=== PATIENT | male | born 1995 | race Caucasian/White ===

== ENCOUNTER 2017-03-17 20:06 | Emergency (ER) | payer MEDICAID ==
[2017-03-17] MEDS ORDERED: ACETAMINOPHEN 325 MG TABLET PO ONE (20:32)
--- NOTE | 2017-03-17 21:04 | ER PHYSICIAN DOCUMENTATION ---
Physician Documentation [facility] Name:Sudheer Speaker Age:21 yrs Sex:Male :1995 Arrival Date:03/17/2017 Time:20:06 Bed1 Private MD: Mychal Garcia Disposition: 03/17/17 20:57 Discharged to Home/Self Care. Impression: Viral Illness. - Condition is Good. - Discharge Instructions: VIRAL SYNDROME (Adult). - Medical Reconciliation form form. - Follow up: Private Physician; When: As needed; Reason: Continuance of care. - Problem is new. - Symptoms have improved. HPI: 03/17 20:57 This 21 yrs old Male presents to ER via Private Vehicle with complaints of jm Fever, Cough, Breathing Difficulty. 20:57 The patient reports fever, not measured (subjective). Onset: The symptom(s)/episode jm began/occurred yesterday, and became worse today. Associated signs and symptoms: Pertinent positives: arthralgias, cough, headache, myalgias, sore throat. Severity of symptoms: in the emergency department the symptoms are unchanged. Historical: - Allergies: No known drug Allergies; - Home Meds: 1. None - PMHx: Asthma; - PSHx: None; - Tetanus: < 10 years. - Ebola Screening: : Patient negative for fever greater than or equal to 101.5 degrees Fahrenheit, and additional compatible Ebola Virus Disease symptoms. - Immunization history: Flu Vaccine None. - Social history: Smoking status: Patient uses tobacco products, current every day smoker. ROS: 20:58 Constitutional: Positive for body aches, chills, fatigue, fever, malaise. jm 20:58 ENT: Positive for sinus congestion, sinus pain. 20:58 Neck: Negative for pain with movement, pain at rest, tenderness. 20:58 Respiratory: Positive for cough. 20:58 Neuro: Positive for headache. Exam: 20:58 Constitutional: The patient appears alert, awake, comfortable. jm 20:58 ENT: Posterior pharynx: Tonsils: bilaterally enlarged, no exudate, erythema, that is moderate, exudate, is not appreciated, Voice: is normal. 20:58 Neck: ROM/movement: limited range of motion, is not appreciated, Meningeal signs: are not present, nuchal rigidity, is not appreciated, Lymph nodes: lymphadenopathy is appreciated, anterior cervical nodes. 20:58 Cardiovascular: Rate: tachycardic, Rhythm: regular. 20:58 Respiratory: the patient does not display signs of respiratory distress, Respirations: normal, Breath sounds: are normal. 20:58 Skin: Appearance: Color: pink, no rash present. Vital Signs: 20:16 BP 127 / 70; Pulse 101; Resp 17; Temp 100.3(O); Pulse Ox 96% on R/A; Weight 52.16 kg; rh Height 5 ft. 10 in. (177.80 cm); Pain 1/10; 21:02 BP 114 / 75; Pulse 89; Resp 15; Temp 99.4(O); Pulse Ox 96% on R/A; Pain 0/10; rh 20:16 Body Mass Index 16.50 (52.16 kg, 177.80 cm) rh MDM: 20:36 Patient medically screened. 20:59 Differential diagnosis: viral Infection, bacterial infection. Data reviewed: vital jm signs, nurses notes, lab test result(s), and as a result, I will discharge patient. Counseling: I had a detailed discussion with the patient and/or guardian regarding: the historical points, exam findings, and any diagnostic results supporting the discharge/admit diagnosis, lab results, the need for outpatient follow up, with the patient's primary care provider. Medication response: The patient's symptoms have improved, acetaminophen administration has lowered the patient's temperature. 03/17 20:44 Order name: INFLUENZA A/B EDMS Dispensed Medications: 20:22 Drug: Tylenol 650 mg; Route: PO; rh 20:35 Follow up: Response: No adverse reaction Signatures: Mychal Valenzuela MD MD jm Hofsess, Rachel
--- NOTE | 2017-03-17 21:04 | ER NURSING DOCUMENTATION ---
Nurse's Notes [facility] [place] Name:Sudheer Speaker Age:21 yrs Sex:Male :1995 Arrival Date:03/17/2017 Time:20:06 Bed1 Private MD: Diagnosis:Viral Illness Presentation: 03/17 20:12 Acuity: NICK 3 rh 20:14 Presenting complaint: Patient states: For 24 hours pt has had cough, sore throat, rh fever, chills, body aches and headache. Pt took advil 8 hours ago. Transition of care: Home. 20:14 Method Of Arrival: Private Vehicle rh Triage Assessment: 20:15 Pertinent positives: chills, cough, headache, sinus congestion, sore throat. General: rh Appears in no apparent distress, Behavior is cooperative. Pain: Complains of pain in GENERALIZED Quality of pain is described as aching. EENT: Oral mucosa is moist. EENT: Throat is pink. Neuro: Level of Consciousness is awake, alert, obeys commands. Cardiovascular: Capillary refill < 3 seconds. Respiratory: Airway is patent Respiratory effort is even, unlabored, Respiratory pattern is regular, symmetrical, Breath sounds are clear bilaterally. Reports cough that is Denies shortness of breath. GI: Abdomen is non- distended Denies diarrhea, nausea, vomiting. : No deficits noted. Derm: Skin is intact, is healthy with good turgor, Skin is pink, warm & dry. Historical: - Allergies: No known drug Allergies; - Home Meds: 1. None - PMHx: Asthma; - PSHx: None; - Tetanus: < 10 years. - Ebola Screening: : Patient negative for fever greater than or equal to 101.5 degrees Fahrenheit, and additional compatible Ebola Virus Disease symptoms. - Immunization history: Flu Vaccine None. - Social history: Smoking status: Patient uses tobacco products, current every day smoker. Screenin:16 Infectious Disease Risk None. Abuse screen: Denies threats or abuse. Denies injuries rh from another. Nutritional screening: No deficits noted. Assessment: 20:16 See Triage Assessment done by same RN. rh Vital Signs: 20:16 BP 127 / 70; Pulse 101; Resp 17; Temp 100.3(O); Pulse Ox 96% on R/A; Weight 52.16 kg; rh Height 5 ft. 10 in. (177.80 cm); Pain 1/10; 21:02 BP 114 / 75; Pulse 89; Resp 15; Temp 99.4(O); Pulse Ox 96% on R/A; Pain 0/10; rh 20:16 Body Mass Index 16.50 (52.16 kg, 177.80 cm) ED Course: 20:08 Patient arrived in ED. ma1 20:12 Berenice Woods is Primary Nurse. 20:12 Triage completed. 20:17 Valuables Remains with patient Patient has correct armband on for positive rh identification. Bed in low position. Call light in reach. Side rails up X 1. 20:36 Mychal Valenzuela MD is Attending Physician. mahesh Administered Medications: 20:22 Drug: Tylenol 650 mg; Route: PO; 20:35 Follow up: Response: No adverse reaction Outcome: 20:57 Discharge ordered by . mahesh 21:02 Discharged to home ambulatory. 21:02 Condition: improved 21:02 Discharge Assessment: Patient awake, alert and oriented x 3. No cognitive and/or functional deficits noted. Patient verbalized understanding of disposition instructions. 21:02 Discharge instructions given to patient, Instructed on discharge instructions, follow up and referral plans. Demonstrated understanding of instructions. 21:03 Patient left the ED. Signatures: Mychal Valenzuela MD MD jm Hofsess, Rachel [facility]
== END 2017-03-17 21:03 | disposition home or self-care (01) ==
LOC: ER 20:06
DX: B34.9 Viral infection, unspecified (principal); R50.9 Fever, unspecified; R53.81 Other malaise; M79.1 Myalgia; R51 Headache; R05 Cough; J35.1 Hypertrophy of tonsils
CPT/HCPCS: 87449; 99283